=== PATIENT | male | born 1970 | race Caucasian/White ===

== ENCOUNTER 2019-07-28 15:17 | Emergency (ER) | payer BC, MEDICAID ==
[2019-07-28 15:41] VITALS: BP 147/100; PULSE 115
[2019-07-28] MEDS ORDERED: ceFAZolin 1 GM Vial IM ONE (16:17)
--- NOTE | 2019-07-28 16:24 | EDM.PDOC ---
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 He noticed over the last couple days it has been red open ulcer older presenting from the foot, he has not had any fevers - Related Data Allergies Allergy/AdvReac Type Severity Reaction Status Date / Time No Known Allergies Allergy Verified 07/28/19 15:42 Home Meds: Home Meds Sulfamethoxazole/Trimethoprim [Bactrim Ds Tablet] 1 each PO BID #20 tablet 07/28 [Rx] Past Medical History HEENT History: Reports: Impaired Vision Cardiovascular History: Reports: High Cholesterol Endocrine/Metabolic History: Reports: Diabetes, Type II - Past Surgical History Other Musculoskeletal Surgeries/Procedures:: toe amputated right foot second toe Social & Family History - Tobacco Use Smoking Status *Q: Never Smoker - Alcohol Use Days Per Week of Alcohol Use: 6 Number of Drinks Per Day: 3 Total Drinks Per Week: 18 - Recreational Drug Use Recreational Drug Use: No Review of Systems - Review of Systems Review Of Systems: See Below Constitutional: Reports: No Symptoms Skin: Reports: Pallor, Bruising, Erythema, Wound ED EXAM, GENERAL - Physical Exam Exam: See Below Free Text/Narrative:: Examination of the left foot reveals open ulcers with bruising erythema digits 1 and 2 pedal pulse is diminished nonpalpable the foot is not warm the erythema is contained within the toes Exam Limited By: No Limitations General Appearance: Alert, WD/WN, No Apparent Distress Respiratory/Chest: No Respiratory Distress Course - Vital Signs Last Recorded V/S: Last Vital Signs Temp 97.1 F 07/28/19 15:42 Pulse 115 H 07/28/19 15:42 Resp 13 07/28/19 15:42 BP 147/100 H 07/28/19 15:42 Pulse Ox 98 07/28/19 15:42 - Orders/Labs/Meds Meds: Medications Discontinued Medications Generic Name Dose Route Start Last Admin Trade Name Freq PRN Reason Stop Dose Admin Cefazolin Sodium 1 gm 07/28/19 16:17 Ancef IM 07/28/19 16:18 ONETIME ONE Departure - Departure Time of Disposition: 16:23 Disposition: Home, Self-Care 01 Condition: Poor Clinical Impression: Diabetic foot infection - Discharge Information Prescriptions: Sulfamethoxazole/Trimethoprim [Bactrim Ds Tablet] 1 each PO BID #20 tablet Referrals: Matthias Montalvo MD [Primary Care Provider] - Additional Instructions: [facility] [place] we'll contact to an appointment time tomorrow with Dr. Farmer , call or return to the emergency department with worsening of symptoms - Assessment/Plan Plan: Assessment Acuity = acute Site and laterality = diabetic foot ulcer left foot Etiology = diabetes mellitus poor control Manifestations = none Location of injury = Home Lab values = none Plan He is given 1 g Ancef started on Bactrim DS one tab by mouth twice a day for 10 days called discussed case with Dr. Farmer junior brand manager at [id number] [employer] [facility] he will contact him tomorrow morning for an appointment time or probable surgical intervention. This note was dictated using [employer] voice recognition software please call with any questions on syntax or grammar.
== END 2019-07-28 16:42 | disposition home or self-care (01) ==
LOC: JP.ED 15:17
DX: E11.69 Type 2 diabetes mellitus with other specified complication (principal); L08.9 Local infection of the skin and subcutaneous tissue, unspecified
CPT/HCPCS: 96372; 99282; J0690; 99283